=== PATIENT | female | born 1970 | race Caucasian/White ===

== ENCOUNTER 2019-08-12 00:37 | Outpatient (CLI) | payer OTHER, SELFPAY ==
[2019-08-12 18:12] LABS: SARS-CoV-2 RNA PCR Negative
== END 2019-08-12 00:38 | disposition home or self-care (01) ==
LOC: ANHCOVIDDT 00:37
PROVIDERS: PCP Emergency Medicine; Visit Provider Obstetrics & Gynecology
DX: Z20.828 Contact with and (suspected) exposure to other viral communicable diseases (principal); Z01.812 Encounter for preprocedural laboratory examination
CPT/HCPCS: 87635; C9803; U0003

== ENCOUNTER 2019-08-13 01:14 | Day surgery (SDC) | payer OTHER, SELFPAY ==
[2019-08-11 11:42] VITALS: BMI 29.9
--- NOTE | 2019-08-12 22:08 | PM.IMHP ---
H&P: HPI History of Present Illness Chief complaint: Heavy Bleeding Narrative: 48 y/o G0 who had a liver transplant for cirrhosis in November 2018. She had no vaginal bleeding for several months, then started having monthly cycles. They have become progressively heavier. The most recent episode began 08/03/19 and has persisted. It is fairly heavy with intermittent passage of large clots. Review of Systems Review of Systems: All systems reviewed & are unremarkable except as noted in HPI and below PMFSH Past Medical History Medical History (Updated 08/12/19 @ 22:15 by Enrike Fraser MD) Anxiety Cirrhosis of liver Depression GERD (gastroesophageal reflux disease) Surgical History Surgical History History of liver transplant Family History Family History Other Esophageal cancer Hypertension Social History Social History Alcohol intake: current Meds Home Medications and Allergies Home Medications Medication Instructions Recorded Confirmed Type aspirin 81 mg tablet 81 mg PO DAILY 02/04/19 08/11/19 History cholecalciferol (vitamin D3) 50 2,000 unit PO DAILY 02/04/19 08/11/19 History mcg (2,000 unit) tablet furosemide 40 mg tablet 40 mg PO .Daily everyother day PRN 02/04/19 08/11/19 History tablet mycophenolate sodium 360 mg 720 mg PO BID 02/04/19 08/11/19 History tablet,delayed release pantoprazole 40 mg tablet,delayed 40 mg PO DAILY tablet 02/04/19 08/11/19 History release sennosides 8.6 mg tablet 8.6 mg PO DAILY PRN tablet 02/04/19 08/11/19 History tacrolimus 1 mg capsule 7 mg PO BID cap 02/04/19 08/11/19 History valganciclovir 450 mg tablet 900 mg PO DAILY 02/04/19 08/11/19 History Allergies Allergy/AdvReac Type Severity Reaction Status Date / Time No Known Allergies Allergy Unverified 08/11/19 11:19 Exam Const: Orientation/consciousness: patient oriented x3 Other: Well-developed, well-nourished female in no acute distress. Neck: Thyroid: thyroid normal Lymphatic: no lymphadenopathy noted (in neck, axilla or inguinal nodes) Resp: Effort & Inspection: normal respiratory effort Auscultation: clear to auscultation bilaterally Cardio: Rate: regular rate Rhythm: regular rhythm Heart sounds: S1 normal heart sound present and S2 normal heart sound present GI: Other: ABD: Soft, nontender, nondistended. No guarding or rebound tenderness. No hepatosplenomegaly. : General: Yes no CVA tenderness Other: External genitalia: normal female hair distribution, without lesion. Urethral meatus: no lesion, non prolapsed. Bladder: no mass, nontender Vagina: well-estrogenized, without lesion or discharge. No cystocele or rectocele. Cervix: no lesion or discharge. Uterus: small, anteverted, freely mobile, nontender Adnexa: no mass or tenderness. Anus/perineum: no lesions, nontender Back/Spine/Pelvis: Back: no CVA tenderness Skin: General skin exam: normal color and no rashes or lesions noted Neuro: General: patient oriented x3 Extrem: Other: Extremities: nontender with no edema Psych: Mental Status: mental status grossly normal Affect: normal affect Assessment and Plan Assessment and plan (1) Episode of heavy vaginal bleeding: Code(s): N93.9 - Abnormal uterine and vaginal bleeding, unspecified Status: Acute Assessment and Plan: In light of the persistence and heaviness of the current bleeding episode, I think a hysteroscopy D&C would be prudent. She understands risks of surgery to include risks of anesthesia, risks of pain, infection, bleeding, blood products, thromboembolic phenomena and damage to adjacent structures such as bowel, bladder, ureters, blood vessels and nerves. She understands all these risks and elects to proceed with surgery.
[2019-08-13] VITALS (10 sets, daily range): BP systolic 105–136; BP diastolic 55–78; PULSE 73–114; RESP 14–16; TEMP 36.2–36.5; O2SAT 100
[2019-08-13 14:20] LABS: Hematocrit 14.8 % (37.0-47.0); Hemoglobin 4.9 g/dL (12.0-15.0)
--- NOTE | 2019-08-13 14:27 | WPDANESEPPF ---
Anes - Initial Pre Proc Eval Procedure: Operation Date: 08/13/19 13:45 Proposed Procedures p Hysteroscopy, Dilation and Curettage - Enrike Fraser MD Date/Time: 08/13/19 14:27 Surgeon: Enrike Fraser MD Pre Op Diagnosis: Heavy Bleeding Patient Data Age: 48 Gender: F Height: 1.65 m Weight: 81 kg Allergies Allergy/AdvReac Type Severity Reaction Status Date / Time No Known Allergies Allergy Unverified 08/13/19 14:25 Home Medications Medication Instructions Recorded Confirmed Type aspirin 81 mg tablet 81 mg PO DAILY 02/04/19 08/13/19 History cholecalciferol (vitamin D3) 50 2,000 unit PO DAILY 02/04/19 08/13/19 History mcg (2,000 unit) tablet furosemide 40 mg tablet 40 mg PO .Daily everyother day PRN 02/04/19 08/13/19 History tablet mycophenolate sodium 360 mg 720 mg PO BID 02/04/19 08/13/19 History tablet,delayed release pantoprazole 40 mg tablet,delayed 40 mg PO DAILY tablet 02/04/19 08/13/19 History release sennosides 8.6 mg tablet 8.6 mg PO DAILY PRN tablet 02/04/19 08/13/19 History tacrolimus 1 mg capsule 7 mg PO BID cap 02/04/19 08/13/19 History valganciclovir 450 mg tablet 900 mg PO DAILY 02/04/19 08/13/19 History Laboratory Tests 08/13/19 08/13/19 08/13/19 14:03 14:03 14:12 Hgb 4.9 g/dL L* g/dL (12.0-15.0) Hct 14.8 % L* % (37.0-47.0) PT Pending INR Pending APTT Pending Sodium Pending Potassium Pending Chloride Pending Carbon Dioxide Pending BUN Pending Creatinine Pending Estim Creat Clear Calc Pending Estimated GFR Pending Glucose Pending Calcium Pending Patient hx anesthesia problems: none Family hx anesthesia problems: none PMFSH Past Medical History Medical History (Updated 08/12/19 @ 22:15 by Enrike Fraser MD) Anxiety Cirrhosis of liver Depression GERD (gastroesophageal reflux disease) Surgical History Surgical History History of liver transplant Family History Family History Other Esophageal cancer Hypertension Social History Social History Alcohol intake: current Anes - Eval Final PreProcedure Day of Procedure 08/13/19 14:27 Patient weight: overweight Heart: regular rate and rhythm Lungs: clear to auscultation and normal air movement Airway: Mallampati scale class II Neurological: alert and oriented Last oral intake: >/= 8 hours ASA classification: III Emergent: no Anesthetic plan: proceed Anesthesia type and monitoring: general GIVS and standard monitoring Informed Consent: The patient's anesthetic plan and its attendant risks and benefits were discussed with the patient/family/POA. Questions were solicited and answers provided to the satisfaction of the patient/family/POA.
[2019-08-13 14:30] LABS: Blood Urea Nitrogen 30 mg/dL (7-17); Calcium 7.7 mg/dL (8.4-10.2); Carbon Dioxide 21 mmol/L (22-30); Chloride 106 mmol/L (98-107); Estimated CRCL calculation 47 ml/min; Estimated Glomerular Filt Rate 40; Glucose 99 mg/dL (65-105); Potassium 4.1 mmol/L (3.4-5.0); Sodium 133 mmol/L (137-145)
[2019-08-13 14:34] LABS: INR 1.1; Prothrombin Time 13.9 Seconds (11.1-14.7)
[2019-08-13 14:35] LABS: Partial Thromboplastin Time 27.3 SECONDS (22.3-36.8)
--- NOTE | 2019-08-13 14:59 | WPDHPUPDATE1 ---
History and Physical Update Update Date/Time: 08/13/19 14:59 History and Physical has been reviewed, including an updated exam of the patient. She has continued to have heavy bleeding for the last week. There was apparently a plum-sized blood clot in her urine specimen today, per the nurse. A hemoglobin today was 4.9 g/dL.. She says she feels lightheaded when she stands quickly. No chest pain or shortness of breath. After consultation with anesthesia and the patient, we have decided to offer transfusion of 2 units PRBC. Risks, benefits, and alternatives to surgery have been reviewed again and questions answered. The patient agrees to proceed with procedure.
--- NOTE | 2019-08-13 15:39 | SUR.PREOP ---
1535 REPORT GIVEN TO Antwon XIAO RN.
[2019-08-13] MEDS: SODIUM CHLORIDE 0.9% IV 250 ML 30 ML IV CONT (15:59)
--- NOTE | 2019-08-13 16:08 | SUR.PREOP ---
1530 - pt's sister in law updated by Tresa, RN.
--- NOTE | 2019-08-13 16:44 | SUR.OPER ---
EBL:50cc
--- NOTE | 2019-08-13 16:45 | PM.PROC ---
Procedure Note - Detailed Date of procedure: 08/13/19 Pre-op diagnosis: Heavy Bleeding Post-op diagnosis: same Procedure performed: Hysteroscopy D&C Description of procedure: The patient was taken to the operating room where she was prepared and draped in the usual sterile fashion in the dorsal lithotomy position. The bladder was drained with a red rubber catheter. A sterile speculum was placed into the vagina. The anterior lip of the cervix was grasped with single-tooth tenaculum. Ten mL of 1% lidocaine was administered in a paracervical block. The cervix was then gently dilated using Hegar dilators until a 7 mm dilator could be passed. Hysteroscopy was performed using sterile saline as a distention medium. Findings are as noted above. Sharp curettage was then performed, and endometrial curettings were collected on a Telfa pad and passed off to be sent to pathology. Hemostasis was excellent. Sponge, lap, needle and instrument counts were correct. The patient was awakened and taken to the recovery room in stable condition. I was present and scrubbed through the entire procedure. Implants: None Anesthesia: GETA and local (1% lidocaine) Surgeon: Enrike Fraser MD Estimated blood loss (mL): 5 Drains: No Packing: No Pathology: yes (Endometrial curettings) Complications: None Condition: stable Disposition: PACU Findings: Thick endometrial curettings. Both tubal ostia seen.
[2019-08-13] MEDS: LACTATED RINGERS 1,000 ML 30 ML IV CONT ×2 (16:50)
--- NOTE | 2019-08-13 17:35 | SUR.PHASEII ---
1700 - pt's family updated on pt's status
--- NOTE | 2019-08-13 17:37 | SUR.PHASEII ---
1710 - clarification - Vital signs on first blood transfusion... 2 times show 1610. the 1610 VS should have been charted for 1649. unable to edit
[2019-08-13 18:47] LABS: Hematocrit 22.4 % (37.0-47.0); Hemoglobin 7.5 g/dL (12.0-15.0)
--- NOTE | 2019-08-13 19:34 | SUR.PHASEII ---
190- result of H&H reported to Dr Sequeira. Papito for pt to go home. assisted up to chair, gait steady. small amt drainage on peripad..
== END 2019-08-13 19:10 | disposition home or self-care (01) ==
PROVIDERS: Anesthesiology; PCP Emergency Medicine; Visit Provider Obstetrics & Gynecology
PROC: 0U5B8ZZ Destruction of Endometrium, Via Natural or Artificial Opening Endoscopic (ICD-10-PCS; CPT 58563; principal; 2019-08-13 13:45)
DX: N93.9 Abnormal uterine and vaginal bleeding, unspecified (principal); F41.8 Other specified anxiety disorders; K21.9 Gastro-esophageal reflux disease without esophagitis; Z79.82 Long term (current) use of aspirin; Z94.4 Liver transplant status
CPT/HCPCS: 58558; 36415; 36430; 80048; 85014; 85018; 85610; 85730; 86850; 86900; 86901; 86923; 88305; J2250; J2704; J3010; J7030; J7050; J7120; P9016

== ENCOUNTER → 2020-11-25 11:49 | Outpatient (CLI) | payer OTHER, SELFPAY ==
--- NOTE | ~2020-11-25 | XR_ITS ---
EXAMINATION: XR elbow RT 2V EXAM DATE: 11/25/2020 12:43 INDICATION: Multiple joint pain . TECHNIQUE: Frontal and lateral projections of the right elbow. Correlation is made to contralateral elbow same day. FINDINGS: No right elbow joint effusion. Joint space is maintained. There are no acute fractures or dislocations identified. There is no subcutaneous gas. The soft tissue is unremarkable. There are no radiopaque foreign bodies. IMPRESSION: 1. Unremarkable XR elbow RT 2V exam. Reviewed, dictated and finalized at location A.
--- NOTE | ~2020-11-25 | XR_ITS ---
EXAMINATION: XR hand LT 2V, XR wrist RT 2V, XR hand RT 2V, XR wrist LT 2V EXAM DATE: 11/25/2020 12:44 INDICATION: Multiple joint pain . TECHNIQUE: Frontal and lateral projections right hand, frontal and lateral projection right wrist, f rontal and lateral projections left hand, frontal and lateral projections left wrist. There is no pr ior study for comparison. FINDINGS: Right hand and wrist: There is severe flexion of the right 5th distal interphalangeal joint, mild at the 4th distal interphalangeal joint with nonuniform narrowing, some bony productive change. Appearan ce is consistent with primary osteoarthritis. Minimal osteoarthritis at the other interphalangeal, me tacarpophalangeal joints and mild osteoarthritis of the carpal bones. Normal mineralization. Left hand and wrist There is nonuniform narrowing of the 3rd-5th distal interphalangeal joints with s evere flexion, and also inferior subluxation at the 4th and 5th joints. Appearance most consistent wi th primary osteoarthritis, could be erosive osteoarthritis at the 5th digit. Mild hyperextension of t hese 3 digit proximal interphalangeal joints. Mild polyarticular carpal osteoarthritis without erosiv e change. Normal mineralization. IMPRESSION: Polyarticular bilateral hand, wrist arthritis appearance most consistent with primary ost eoarthritis. This is most advanced at the left 5th DIP joint which could be erosive osteoarthritis. Reviewed, dictated and finalized at location A. IMPRESSION: Polyarticular bilateral hand, wrist arthritis appearance most consi stent with primary osteoarthritis. This is most advanced at the left 5th DIP courtney int which could be erosive osteoarthritis. IMPRESSION: Polyarticular bilateral hand, wrist arthritis appearance most consi stent with primary osteoarthritis. This is most advanced at the left 5th DIP courtney int which could be erosive osteoarthritis. IMPRESSION: Polyarticular bilateral hand, wrist arthritis appearance most consi stent with primary osteoarthritis. This is most advanced at the left 5th DIP courtney int which could be erosive osteoarthritis.
--- NOTE | ~2020-11-25 | XR_ITS ---
EXAMINATION: XR elbow LT 2V EXAM DATE: 11/25/2020 12:43 INDICATION: Multiple joint pain TECHNIQUE: Frontal and lateral projections of the left elbow. Correlation is made to contralateral e lbow same date. FINDINGS: There are no acute left elbow fractures or dislocations identified. There is no subcutaneo us gas. The soft tissue is unremarkable. There are no radiopaque foreign bodies. Joint space is m aintained. No evidence of joint effusion. IMPRESSION: 1. Unremarkable XR elbow LT 2V exam. Reviewed, dictated and finalized at location A.
--- NOTE | ~2020-11-25 | XR_ITS ---
EXAMINATION: XR knee RT 2V EXAM DATE: 11/25/2020 12:43 INDICATION: Multiple joint pain TECHNIQUE: Frontal and lateral projections of the right knee knee. Correlation is made to Contralate ral knee same day. FINDINGS: The right knee joint effusion. There is evidence of moderate patellofemoral and medial tib ial femoral compartment osteoarthritis, probably primary osteoarthritis. There are no acute fractures or dislocations identified. There is no subcutaneous gas. The soft tissue is unremarkable. There are no radiopaque foreign bodies. IMPRESSION: Moderate left knee osteoarthritis. Reviewed, dictated and finalized at location A.
--- NOTE | ~2020-11-25 | XR_ITS ---
EXAMINATION: XR knee LT 2V EXAM DATE: 11/25/2020 12:43 INDICATION: Multiple joint pain TECHNIQUE: Frontal and lateral projections of the left knee knee. There is no prior study for compar [place]. FINDINGS: No left knee joint effusion. Joint space is maintained. There are no acute fractures or di slocations identified. There is no subcutaneous gas. The soft tissue is unremarkable. There are n o radiopaque foreign bodies. IMPRESSION: 1. Unremarkable XR knee LT 2V exam. Reviewed, dictated and finalized at location A.
== END ==
PROVIDERS: PCP Emergency Medicine; Visit Provider Internal Medicine Rheumatology
DX: M25.59 Pain in other specified joint (principal); M89.49 Other hypertrophic osteoarthropathy, multiple sites
CPT/HCPCS: 73070; 73100; 73120; 73560

== ENCOUNTER 2021-03-25 08:38 | Outpatient (CLI) | payer OTHER, SELFPAY ==
--- NOTE | ~2021-03-25 | MR_ITS ---
EXAMINATION: MR knee LT wo con DATE: 03/25/2021 10:14 INDICATION: Left knee pain. TECHNIQUE: Magnetic resonance imaging (MRI) of the left knee was performed without intravenous contra st. Sequences included axial PD-weighted FS FSE, coronal PD-weighted FSE and PD-weighted FS FSE, sagi ttal PD-weighted FSE, and sagittal T2-weighted FS FSE. COMPARISON: Left knee radiographs 11/25/2020 FINDINGS: Medial compartment: Medial meniscus is normal. There is shallow partial-thickness cartilage loss of tibial condyle and fe moral condyle. Lateral compartment: Lateral meniscus is normal. The lateral compartment cartilage is normal. Patellofemoral compartment: Patellar cartilage is normal. Trochlear cartilage is normal. Ligaments and tendons: The anterior and posterior cruciate ligaments are normal. Medial collateral ligament and lateral kami ateral ligament complex are normal. There is moderate tendinopathy. There is tendinopathy and partial tear of the quadriceps tendon attachment on the patella. Fluid: There is a small knee joint effusion. There is trace fluid in a Pena's cyst. There is moderate prepa tellar bursitis. IMPRESSION: 1. Mild medial compartment chondrosis. 2. Tendinopathy and partial tear of quadriceps tendon at its attachment on the patella. 3. Moderate prepatellar bursitis. 4. Small knee joint effusion. Reviewed, dictated and finalized at location A. 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
--- NOTE | ~2021-03-25 | MR_ITS ---
EXAMINATION: MR knee RT wo con DATE: 03/25/2021 10:14 INDICATION: Right knee pain. TECHNIQUE: Magnetic resonance imaging (MRI) of the right knee was performed without intravenous contr ast. Sequences included axial PD-weighted FS FSE, coronal PD-weighted FSE and PD-weighted FS FSE, sag ittal PD-weighted FSE, and sagittal T2-weighted FS FSE. COMPARISON: Right knee radiographs 11/25/2020 FINDINGS: Medial compartment: There is an upper surface horizontal tear of body of medial meniscus. There is extensive partial thic kness cartilage loss of tibial condyle and femoral condyle, deep at central and medial articular surf roderick of tibial condyle and medial articular surface of femoral condyle. Osteophytes are noted. Lateral compartment: Medial meniscus is normal. There is shallow partial-thickness cartilage loss of femoral condyle, wors t at the central articular surface. There is full-thickness cartilage fissuring of tibial condyle inv olving the central articular surface with undermining of the cartilage. Osteophytes are noted. Patellofemoral compartment: There is full-thickness cartilage loss of patellar medial facet with intra-articular osteophyte. Ther e is shallow partial-thickness cartilage loss of patellar lateral facet. There is full-thickness cart ilage loss of medial trochlea. There is shallow partial-thickness cartilage loss of lateral trochlea. Marginal osteophytes are noted. Ligaments and tendons: The anterior and posterior cruciate ligaments are normal. Medial collateral ligament is intact. There are changes of prior sprain of fibular collateral ligament characterized by increased signal intensi ty proximally. There is moderate patellar tendinopathy. There is severe quadriceps tendinopathy. Fluid: There is a moderate-sized knee joint effusion. There is mild prepatellar and superficial infrapatella r bursitis. IMPRESSION: 1. Severe chondrosis of lateral and patellofemoral compartments and moderate chondrosis of medial com partment. 2. Tear of medial meniscus. 3. Moderate-sized knee joint effusion. 4. Severe quadriceps tendinopathy. Moderate patellar tendinopathy. Reviewed, dictated and finalized at location A. 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 Severe chondrosis of lateral and patellofemoral compartments and moderate ch ondrosis of medial compartment. 2. Tear of medial meniscus. 3. Moderate-sized knee joint effusion. 4. Severe quadriceps tendinopathy. Moderate patellar tendinopathy.
== END 2021-03-25 08:39 | disposition home or self-care (01) ==
PROVIDERS: PCP Emergency Medicine; Visit Provider Internal Medicine Rheumatology
DX: M25.562 Pain in left knee (principal); M25.561 Pain in right knee; M22.2X1 Patellofemoral disorders, right knee; S83.241A Other tear of medial meniscus, current injury, right knee, initial encounter; M25.461 Effusion, right knee; M76.51 Patellar tendinitis, right knee; M22.2X2 Patellofemoral disorders, left knee; M71.562 Other bursitis, not elsewhere classified, left knee; M25.462 Effusion, left knee
CPT/HCPCS: 73721

== ENCOUNTER 2021-06-29 10:36 | Outpatient (CLI) | payer OTHER, SELFPAY ==
--- NOTE | ~2021-06-29 | US_ITS ---
EXAMINATION: US retroperitoneal comp DATE: 06/29/2021 11:18 INDICATION: Elevated serum creatinine TECHNIQUE: Multiple ultrasound grayscale images of the kidneys were obtained. COMPARISON: None. FINDINGS: The right kidney measures 10.0 x 4.3 x 5.0 cm. The left kidney measures 10.0 x 3.7 x 4.5 cm. The kidn eys demonstrate normal echogenicity. There is no hydronephrosis in either kidney. No stones identifi ed. The bladder is normal. IMPRESSION: 1. Normal kidneys without hydronephrosis. Reviewed, dictated and finalized at location A.
== END 2021-06-29 10:37 | disposition home or self-care (01) ==
LOC: ANHIMG 10:43
PROVIDERS: PCP Emergency Medicine; Visit Provider Internal Medicine Nephrology
DX: R79.89 Other specified abnormal findings of blood chemistry (principal)
CPT/HCPCS: 76770

== ENCOUNTER 2022-12-23 08:24 | Outpatient (CLI) | payer OTHER, SELFPAY ==
--- NOTE | ~2022-12-23 | MM_ITS ---
EXAMINATION: MM screening eufemia BI w pedro HISTORY: Screening mammogram TECHNIQUE: Craniocaudal and mediolateral oblique 3-D tomosynthesis images were obtained and synthetic 2-D images were generated. CAD analysis was submitted and interpreted. COMPARISON: No prior mammogram is available for comparison at this institution. BREAST PARENCHYMAL COMPOSITION: There are scattered areas of fibroglandular density. FINDINGS: No suspicious mass, calcification, or architectural distortion are identified in either mikal ast to suggest malignancy. There has been no suspicious interval change. IMPRESSION: 1. No mammographic evidence of malignancy. 2. Recommend routine screening mammography in one year. BI-RADS Category 1: Negative Reviewed, dictated and finalized at location A.
== END 2022-12-23 08:25 | disposition home or self-care (01) ==
LOC: ANHIMG 08:29
PROVIDERS: PCP Emergency Medicine; Visit Provider Emergency Medicine
DX: Z12.31 Encounter for screening mammogram for malignant neoplasm of breast (principal)
CPT/HCPCS: 77063; 77067

== ENCOUNTER 2022-12-23 09:06 | Outpatient (CLI) | payer OTHER, SELFPAY ==
--- NOTE | ~2022-12-23 | XR_ITS ---
XR_[id number]_CR DATE: 12/23/2022 09:26 INDICATION: Neck strain TECHNIQUE: AP, open-mouth, odontoid and lateral views COMPARISON: None FINDINGS: Mild cervicothoracic levoscoliosis. C1 and C2 are normally aligned and the odontoid process is intact. No fracture or dislocation or locked facet or prevertebral soft tissue swelling is detect ed. Cervical interspaces are well preserved. Bilateral elongated C7 transverse processes. IMPRESSION: Mild levoscoliosis Elongated C7 transverse processes Reviewed, dictated and finalized at Location A. Reviewed, dictated and finalized at location A.
== END 2022-12-23 09:07 | disposition home or self-care (01) ==
PROVIDERS: PCP Emergency Medicine; Visit Provider Emergency Medicine
DX: M41.83 Other forms of scoliosis, cervicothoracic region (principal); S16.1XXA Strain of muscle, fascia and tendon at neck level, initial encounter; Q76.49 Other congenital malformations of spine, not associated with scoliosis
CPT/HCPCS: 72040; 77063; 77067